=== PATIENT | female | born 1980 | race Caucasian/White ===

== ENCOUNTER 2017-03-08 17:05 | Emergency (ER) | payer OTHER ==
[~2017-03-08] VITALS: Ht 175.3 cm; Wt 59.0 kg
[2017-03-08] MEDS ORDERED: Ketorolac 30mg Inj IV ONE (17:30)
[2017-03-08 17:50] LABS: BASOPHILS % (AUTO) 0.9 % (0.0-2.0); LYMPHOCYTES % (AUTO) 20.2 % (20.0-45.0); MEAN CORPUSCULAR HGB CONC 36.1 G/DL (32.0-36.0); MEAN CORPUSCULAR VOLUME 100 FL (80-99); MEAN PLATELET VOLUME 8.3 FL (6.5-10.1); MONOCYTES % (AUTO) 4.6 % (1.0-10.0); NEUTROPHILS % (AUTO) 72.3 % (45.0-75.0); PLATELET COUNT 269 K/UL (150-450); RED BLOOD COUNT 4.19 M/UL (4.20-5.40); RED CELL DISTRIBUTION WIDTH 11.2 % (11.6-14.8); WHITE BLOOD COUNT 11.8 K/UL (4.8-10.8)
[2017-03-08 17:51] LABS: APPEARANCE,URINE CLOUDY; KETONES,URINE 3+ (NEGATIVE); LEUKOCYTE ESTERASE ,URINE 1+ (NEGATIVE); NITRITE,URINE NEGATIVE (NEGATIVE); PH,URINE 5 (4.5-8.0); PROTEIN,URINE 2+ (NEGATIVE); UROBILINOGEN,URINE NORMAL MG/DL (0.0-1.0)
[2017-03-08 17:54] VITALS: BP 97/68
[2017-03-08 18:02] LABS: RBC,URINE TNTC /HPF (0 - 2)
[2017-03-08 18:03] LABS: BACTERIA,URINE OCCASIONAL /HPF; WBC,URINE 0 /HPF (0 - 2)
[2017-03-08 18:09] LABS: ANION GAP 17 (5-15); CALCIUM 9.5 mg/dL (8.6-10.2); CARBON DIOXIDE 24 mEQ/L (20-30); CHLORIDE 99 mEQ/L (98-107); CREATININE 0.8 mg/dL (0.5-0.9); GLOMERULAR FILTRATION RATE > 60 mL/min (>60); HEMOLYSIS 4; POTASSIUM 3.9 mEQ/L (3.4-4.9); SODIUM 140 mEQ/L (135-145)
[2017-03-08] MEDS ORDERED: ACETAMINOPHEN325 M1 ORAL (20:34)
[2017-03-08] MEDS ORDERED: REGLAN10 MG ORAL (20:34)
[2017-03-08 20:49] VITALS: BP 97/68
--- NOTE | 2017-03-08 21:51 | Emergency Room Report ---
History of Present Illness General Chief Complaint: Vaginal Source: Patient Present Illness HPI Patient is a 37-year-old female presenting for excessive vaginal bleeding. The patient states that she had an IUD in place and became 3 months prior. The was said to be ectopic and the patient was given methotrexate on 02.01.17. The patient states that she had a lot of tissue pass and subsequent visits went well. Patient did not need a D&C. A NuvaRing was then placed 2 weeks prior. Patient noticed pain and bleeding and NuvaRing was removed one week prior. The patient then noticed increased bleeding with clotting. The patient states that she goes through 5 pads per day. Pain to the lower abdomen is described as a 6/10 dull ache with cramping. Pain does not radiate. She admits to nausea and fatigue. She denies other symptoms including fever, chills, shortness of breath, chest pain, rash, flank pain, constipation, diarrhea, vaginal discharge, dysuria Allergies: Coded Allergies: SULFA (SULFONAMIDE ANTIBIOTICS) (Verified Allergy, Unknown, 03/08/17) Patient History Past Medical History: see triage record Pertinent Family History: none Last Menstrual Period: unsure possibly 02/16/17 Now: No : 1 Para: 0 Reviewed Nursing Documentation: PMH: Agreed, PSxH: Agreed Nursing Documentation-PMH Past Medical History: No Stated History Physical Exam Vital Signs Date Time Temp Pulse Resp B/P Pulse Ox O2 Delivery O2 Flow Rate FiO2 03/08/17 17:13 97.9 89 18 97/68 97 Room Air Medical Decision Making PA Attestation Dr. Juarez is my supervising physician. Patient management was discussed with my supervising physician Diagnostic Impression: Primary Impression: Threatened miscarriage ER Course The patient will followup with [facility]PERATOR or will return to the emergency department in 72 hours for redraw of the hCG Laboratory Tests Test 03/08/17 17:20 03/08/17 17:40 Urine Color Pale yellow Urine Appearance Cloudy Urine pH 5 (4.5-8.0) Urine Specific [place] 1.020 (1.005-1.035) Urine Protein 2+ (NEGATIVE) H Urine Glucose (UA) Negative (NEGATIVE) Urine Ketones 3+ (NEGATIVE) H Urine Occult Blood 5+ (NEGATIVE) H Urine Nitrite Negative (NEGATIVE) Urine Bilirubin Negative (NEGATIVE) Urine Urobilinogen Normal MG/DL (0.0-1.0) Urine Leukocyte Esterase 1+ (NEGATIVE) H Urine RBC Tntc /HPF (0 - 2) H Urine WBC 0 /HPF (0 - 2) Urine Squamous Epithelial Cells None /LPF (NONE/OCC) Urine Bacteria Occasional /HPF (NONE) Urine HCG, Qualitative Positive White Blood Count 11.8 K/UL (4.8-10.8) H Red Blood Count 4.19 M/UL (4.20-5.40) L Hemoglobin 15.1 G/DL (12.0-16.0) Hematocrit 41.9 % (37.0-47.0) Mean Corpuscular Volume 100 FL (80-99) H Mean Corpuscular Hemoglobin 36.0 PG (27.0-31.0) H Mean Corpuscular Hemoglobin Concent 36.1 G/DL (32.0-36.0) H Red Cell Distribution Width 11.2 % (11.6-14.8) L Platelet Count 269 K/UL (150-450) Mean Platelet Volume 8.3 FL (6.5-10.1) Neutrophils (%) (Auto) 72.3 % (45.0-75.0) Lymphocytes (%) (Auto) 20.2 % (20.0-45.0) Monocytes (%) (Auto) 4.6 % (1.0-10.0) Eosinophils (%) (Auto) 2.0 % (0.0-3.0) Basophils (%) (Auto) 0.9 % (0.0-2.0) Sodium Level 140 mEQ/L (135-145) Potassium Level 3.9 mEQ/L (3.4-4.9) Chloride Level 99 mEQ/L (98-107) Carbon Dioxide Level 24 mEQ/L (20-30) Anion Gap 17 (5-15) H Blood Urea Nitrogen 8 mg/dL (7-23) Creatinine 0.8 mg/dL (0.5-0.9) Estimate Glomerular Filtration Rate > 60 mL/min (>60) Glucose Level 126 mg/dL (74-106) H Calcium Level 9.5 mg/dL (8.6-10.2) Human Chorionic Gonadotropin, Quant 789 mIU/mL Last Vital Signs Date Time Temp Pulse Resp B/P Pulse Ox O2 Delivery O2 Flow Rate FiO2 5/5/17 20:49 97.9 89 18 97/68 97 Room Air Disposition: HOME, SELF-CARE Condition: Improved Scripts Metoclopramide Hcl* (REGLAN*) 10 Mg Tablet 10 MG ORAL THREE TIMES A DAY, #15 TAB Prov: NORMAN EDUARDO 03/08/17 Acetaminophen* (ACETAMINOPHEN 325MG TABLET*) 325 Mg Tablet 325 MG ORAL Q4H Y for For Pain, #30 TAB Prov: NORMAN EDUARDO 03/08/17 Referrals: REGINA DUKES Patient Instructions: Threatened Miscarriage Additional Instructions: I discussed my findings with the patient. All questions and concerns have been answered. Treatment and medication compliance have been addressed. I advised the patient that they need to follow up with PMD in 3-5 days. Return to ED if symptoms worsen, new symptoms arise, or if needed for any reason. Patient verbalized understanding of discharge instructions. The patient is informed that she needs to return to this emergency department in 72 hours for recheck of beta hCG. Patient will return sooner if needed for any reason. NORMAN EDUARDO March 08, 2017 21:51
--- NOTE | 2017-03-09 12:54 | Diagnostic Imaging Report ---
Indication:Lower abdominal and pelvic pain. Vaginal bleeding. Technique: Grayscale and duplex Doppler imaging of the pelvis performed utilizing a transabdominal scan and endovaginal scan. Comparison: None Findings: status is unknown. There is no intrauterine demonstrated. The endometrium is mildly thickened and slightly heterogeneous. Endometrial measurement is about 12 mm. Small focus of blood and/or retained products of conception not excludable. Both ovaries are demonstrated and show Doppler evidence of blood flow. There is no free fluid or adnexal mass. Impression: Heterogeneous slightly thickened endometrium. Small amount of blood and/or retained products of conception not excluded.
== END 2017-03-08 20:44 | disposition home or self-care (01) ==
LOC: EMR 17:25
DX: O20.0 Threatened abortion (principal); Z3A.00 Weeks of gestation of pregnancy not specified; Z88.2 Allergy status to sulfonamides
CPT/HCPCS: 36415; 76830; 76856; 80048; 81003; 81025; 84702; 85025; 96374; 96375; 99284; J1885; J2405

== ENCOUNTER 2017-03-11 12:44 | Emergency (ER) | payer OTHER ==
[~2017-03-11] VITALS: Ht 175.3 cm; Wt 59.0 kg
[~2017-03-11 12:44] MED LIST: ACETAMINOPHEN325 M1 ORAL; REGLAN10 MG ORAL
[2017-03-11 12:49] VITALS: BP 116/73
[2017-03-11 13:50] LABS: BASOPHILS % (AUTO) 1.8 % (0.0-2.0); EOSINOPHILS % (AUTO) 4.4 % (0.0-3.0); MEAN CORPUSCULAR HEMOGLOBIN 32.8 PG (27.0-31.0); MEAN CORPUSCULAR VOLUME 99 FL (80-99); MEAN PLATELET VOLUME 8.5 FL (6.5-10.1); MONOCYTES % (AUTO) 8.5 % (1.0-10.0); NEUTROPHILS % (AUTO) 46.3 % (45.0-75.0); PLATELET COUNT 293 K/UL (150-450); RED BLOOD COUNT 4.34 M/UL (4.20-5.40); RED CELL DISTRIBUTION WIDTH 11.4 % (11.6-14.8); WHITE BLOOD COUNT 6.7 K/UL (4.8-10.8)
[2017-03-11 14:03] LABS: INR 1.1 (0.9-1.1); PROTHROMBIN TIME 11.3 SEC (9.30-11.50)
[2017-03-11 14:10] LABS: ANION GAP 14 (5-15); CALCIUM 9.3 mg/dL (8.6-10.2); CARBON DIOXIDE 24 mEQ/L (20-30); CHLORIDE 99 mEQ/L (98-107); CREATININE 0.8 mg/dL (0.5-0.9); GLOMERULAR FILTRATION RATE > 60 mL/min (>60); HEMOLYSIS 3; POTASSIUM 3.8 mEQ/L (3.4-4.9); SODIUM 137 mEQ/L (135-145)
[2017-03-11 14:13] LABS: APPEARANCE,URINE CLEAR; KETONES,URINE NEGATIVE (NEGATIVE); LEUKOCYTE ESTERASE ,URINE 1+ (NEGATIVE); NITRITE,URINE NEGATIVE (NEGATIVE); PH,URINE 5 (4.5-8.0); PROTEIN,URINE NEGATIVE (NEGATIVE); UROBILINOGEN,URINE NORMAL MG/DL (0.0-1.0)
[2017-03-11 14:31] LABS: BACTERIA,URINE FEW /HPF; SQUAMOUS EPITHELIAL CELL,UR FEW /LPF (NONE/OCC)
[2017-03-11 16:30] VITALS: BP 120/79
--- NOTE | 2017-03-11 18:33 | Emergency Room Report ---
History of Present Illness General Chief Complaint: Complications Source: Patient Present Illness HPI Patient is a 37-year-old female presenting for beta hCG repeat and continued vaginal bleeding. The patient was seen in this emergency department 3 days prior for vaginal bleeding after medically terminating . The was said to be ectopic and the patient was given methotrexate on 02.01.17. The patient states that she had a lot of tissue pass and subsequent visits went well. The patient states that she goes through 5 pads per day. Pain to the lower abdomen is described as a 6/10 dull ache with cramping. Pain does not radiate. She admits to nausea and fatigue. She denies other symptoms including fever, chills, shortness of breath, chest pain, rash, flank pain, constipation, diarrhea, vaginal discharge, dysuria No D&C was done. Allergies: Coded Allergies: SULFA (SULFONAMIDE ANTIBIOTICS) (Verified Allergy, Unknown, 03/08/17) Patient History Past Medical History: see triage record Pertinent Family History: none Last Menstrual Period: unk : 2 Para: 0 Reviewed Nursing Documentation: PMH: Agreed, PSxH: Agreed Nursing Documentation-PMH Past Medical History: No Stated History Review of Systems All Other Systems: negative except mentioned in HPI Physical Exam Vital Signs Date Time Temp Pulse Resp B/P Pulse Ox O2 Delivery O2 Flow Rate FiO2 03/11/17 12:49 98.4 76 16 116/73 98 Room Air Sp02 EP Interpretation: reviewed, normal General Appearance: no apparent distress, alert, GCS 15, non-toxic Head: normocephalic, atraumatic Eyes: bilateral eye PERRL, bilateral eye normal inspection ENT: hearing grossly normal, normal pharynx, no angioedema, normal voice Neck: full range of motion, supple/symm/no masses Respiratory: chest non-tender, lungs clear, normal breath sounds, speaking full sentences Cardiovascular #1: regular rate, rhythm, no edema Gastrointestinal: normal bowel sounds, soft, no mass, no guarding, tenderness - suprapubic Genitourinary: normal inspection, no CVA tenderness Musculoskeletal: back normal, gait/station normal, normal range of motion, non- tender Neurologic: alert, oriented x3, responsive, motor strength/tone normal, sensory intact, normal gait, speech normal Psychiatric: judgement/insight normal, memory normal, mood/affect normal, no suicidal/homicidal ideation Skin: normal color, no rash, warm/dry, well hydrated Lymphatic: no adenopathy Medical Decision Making PA Attestation Dr. Degroot is my supervising physician. Patient management was discussed with my supervising physician Diagnostic Impression: Primary Impression: Retained products of conception ER Course Patient is a 37-year-old female presenting for beta hCG repeat and continued vaginal bleeding Differential diagnoses considered include but not limited to Early , threatened , incomplete , ectopic , hemorrhagic cyst, retained products of conception PE: Vitals WNL. NAD. Abdomen: Normal appearance. Non distended. No ecchymosis. Normal BS. + TTP over the suprapubic region only. No McBurney point tenderness. No guarding. No CVA tenderness Labs: CBC unremarkable. No anemia BMP unremarkable. beta hCG shows no significant change from 3 days prior. UA: 3+ occult blood. No signs of infection pelvic US shows retained products of conception. THE OB reinforced concrete inspector was consulted over the phone who recommends having the patient take cytotec and follow up. The pt was given 400 mcg of cytotec as instructed. She will FU with OB. Outpatient referral provided. ER precautions given. She is given a prescription for doxycycline. Labs Test 03/11/17 13:30 03/11/17 14:00 White Blood Count 6.7 K/UL (4.8-10.8) Red Blood Count 4.34 M/UL (4.20-5.40) Hemoglobin 14.2 G/DL (12.0-16.0) Hematocrit 43.1 % (37.0-47.0) Mean Corpuscular Volume 99 FL (80-99) Mean Corpuscular Hemoglobin 32.8 PG (27.0-31.0) Mean Corpuscular Hemoglobin Concent 33.0 G/DL (32.0-36.0) Red Cell Distribution Width 11.4 % (11.6-14.8) Platelet Count 293 K/UL (150-450) Mean Platelet Volume 8.5 FL (6.5-10.1) Neutrophils (%) (Auto) 46.3 % (45.0-75.0) Lymphocytes (%) (Auto) 39.0 % (20.0-45.0) Monocytes (%) (Auto) 8.5 % (1.0-10.0) Eosinophils (%) (Auto) 4.4 % (0.0-3.0) Basophils (%) (Auto) 1.8 % (0.0-2.0) Prothrombin Time 11.3 SEC (9.30-11.50) Prothromb Time International Ratio 1.1 (0.9-1.1) Activated Partial Thromboplast Time 28 SEC (23-33) Sodium Level 137 mEQ/L (135-145) Potassium Level 3.8 mEQ/L (3.4-4.9) Chloride Level 99 mEQ/L (98-107) Carbon Dioxide Level 24 mEQ/L (20-30) Anion Gap 14 (5-15) Blood Urea Nitrogen 8 mg/dL (7-23) Creatinine 0.8 mg/dL (0.5-0.9) Estimat Glomerular Filtration Rate > 60 mL/min (>60) Glucose Level 96 mg/dL (74-106) Calcium Level 9.3 mg/dL (8.6-10.2) Human Chorionic Gonadotropin, Quant 835 mIU/mL Urine Color Pale yellow Urine Appearance Clear Urine pH 5 (4.5-8.0) Urine Specific [place] 1.020 (1.005-1.035) Urine Protein Negative (NEGATIVE) Urine Glucose (UA) Negative (NEGATIVE) Urine Ketones Negative (NEGATIVE) Urine Occult Blood 4+ (NEGATIVE) Urine Nitrite Negative (NEGATIVE) Urine Bilirubin Negative (NEGATIVE) Urine Urobilinogen Normal MG/DL (0.0-1.0) Urine Leukocyte Esterase 1+ (NEGATIVE) Urine RBC 2-4 /HPF (0 - 2) Urine WBC 2-4 /HPF (0 - 2) Urine Squamous Epithelial Cells Few /LPF (NONE/OCC) Urine Bacteria Few /HPF (NONE) Urine HCG, Qualitative Positive Lab Results Impression CBC unremarkable. No anemia BMP unremarkable. beta hCG shows no significant change from 3 days prior. UA: 3+ occult blood. No signs of infection CT/MRI/US Diagnostic Results CT/MRI/US Diagnostic Results : Imaging Test Ordered: Pelvic US Impression Heterogeneous appearance of the endometrium. Retained products of conception suspected. Similar findings on the prior exam. Mild free fluid. Last Vital Signs Date Time Temp Pulse Resp B/P Pulse Ox O2 Delivery O2 Flow Rate FiO2 03/11/17 16:30 98.2 76 16 120/79 97 Room Air Status: improved Disposition: HOME, SELF-CARE Condition: Improved Scripts Doxycycline Hyclate* (VIBRAMYCIN*) 100 Mg Capsule 100 MG ORAL EVERY 12 HOURS, #14 CAP 0 Refills Prov: NORMAN EDUARDO 03/11/17 Referrals: [facility] (PCP) NORMAN EDUARDO March 11, 2017 18:33
[2017-03-11] MEDS ORDERED: Misoprostol 100mcg tab ORAL ONE (19:00)
[2017-03-11] MEDS ORDERED: VIBRAMYCIN100 MG ORAL (19:05)
[2017-03-11 19:45] VITALS: BP 124/76
--- NOTE | 2017-03-12 09:06 | Diagnostic Imaging Report ---
Indication:Lower abdominal and pelvic pain Technique: Grayscale and duplex Doppler imaging of the pelvis performed utilizing a transabdominal scan and endovaginal scan. Comparison: Ultrasound 03/08/17 Findings: Similar findings are noted currently. There is evidence of blood and/or debris within the endometrial canal distending the canal . The endometrial contents are heterogeneous and demonstrates some Doppler evidence of blood flow. In the context of a positive test, the findings are suspicious for retained products of conception. WOOL PULLER evaluation is recommended. The uterus measures 8.3 x 4.5 x 3.7 cm. There is a small hypoechoic mass in the lower uterine segment most likely a small fibroid measuring approximately 1 cm. Alternatively, this could be a scar. Please correlate clinically. Both ovaries are demonstrated and appear normal with dopplerable blood flow. Right ovary 3.8 x 3.7 x 2.1 CM. Left ovary 3.3 x 3.7 x 1.6 cm. Mild free fluid is present. Impression: Heterogeneous appearance of the endometrium. Retained products of conception suspected. Similar findings on the prior exam. Mild free fluid.
== END 2017-03-11 19:45 | disposition home or self-care (01) ==
LOC: EMR 13:14 → CANBEDREQ 18:40 → EMR 19:45
DX: O03.4 Incomplete spontaneous abortion without complication (principal); Z88.2 Allergy status to sulfonamides; R10.30 Lower abdominal pain, unspecified; R11.0 Nausea
CPT/HCPCS: 36415; 76830; 76856; 80048; 81003; 81025; 84702; 85025; 85610; 85730; 99284

== ENCOUNTER 2018-06-23 11:06 | Emergency (ER) | payer OTHER ==
[~2018-06-23] VITALS: Ht 175.3 cm; Wt 56.7 kg
[~2018-06-23 11:06] MED LIST changes: +VIBRAMYCIN100 MG ORAL
[2018-06-23] MEDS ORDERED: NKM (11:14)
[2018-06-23 11:19] VITALS: BP 118/64
[2018-06-23] MEDS ORDERED: Lidocaine 1% Plain 30 ml INJ ONE (11:45)
[2018-06-23] MEDS ORDERED: BACITRACIN15 GM TOPIC (12:18)
[2018-06-23] MEDS ORDERED: Bacitracin Oint UD TOPIC ONE ×2 (12:20→12:30)
[2018-06-23 12:28] VITALS: BP 118/64
--- NOTE | 2018-06-25 07:14 | Emergency Room Report ---
History of Present Illness General Chief Complaint: Laceration Source: Patient Present Illness HPI 38-year-old female presents ED for evaluation of laceration. States that she accidentally cut her right fifth finger with a knife while cooking today. Tetanus is up-to-date. Pain is dull, 8 out of 10, nonradiating. Denies any other injuries. No other aggravating relieving factors. Denies any other associated symptoms Allergies: Coded Allergies: SULFA (SULFONAMIDE ANTIBIOTICS) (Verified Allergy, Unknown, 03/08/17) Patient History Past Medical History: none Past Surgical History: none Pertinent Family History: none Social History: Denies: smoking, alcohol use, drug use Last Menstrual Period: 06/04/18 Now: No Immunizations: UTD Reviewed Nursing Documentation: PMH: Agreed; PSxH: Agreed Nursing Documentation-PMH Past Medical History: No Stated History Review of Systems All Other Systems: negative except mentioned in HPI Physical Exam Vital Signs Date Time Temp Pulse Resp B/P (MAP) Pulse Ox O2 Delivery O2 Flow Rate FiO2 06/23/18 11:11 98.1 88 18 118/64 97 Room Air 98.1 Sp02 EP Interpretation: reviewed, normal General Appearance: no apparent distress, alert, GCS 15, non-toxic Head: normocephalic Eyes: bilateral eye normal inspection, bilateral eye PERRL ENT: normal ENT inspection Neck: normal inspection Respiratory: normal inspection Cardiovascular #1: normal inspection Gastrointestinal: normal inspection Rectal: deferred Genitourinary: no CVA tenderness Musculoskeletal: back normal, gait/station normal, normal range of motion, non- tender Neurologic: alert, oriented x3, responsive, motor strength/tone normal, sensory intact, speech normal Psychiatric: judgement/insight normal, memory normal, mood/affect normal, no suicidal/homicidal ideation Skin: laceration - 1.5cm flap laceration to R 5th finger. Lymphatic: normal inspection Procedures Laceration/Wound Repair Laceration/Wound Repair : Consent: Verbal Wound Location: upper extremity - R 5th finger Wound's Depth, Shape: flap Wound Explored: clean Betadine Prep?: Yes Anesthesia: 1% Lidocaine Wound Debrided: minimal Wound Repaired With: sutures Suture Size/Type: 6:0, proline Layer Closure?: No Sterile Dressing Applied?: Yes Splint Applied?: No Sling Applied?: No Patient Tolerated: Well Complications: None Medical Decision Making Diagnostic Impression: Primary Impression: Laceration ER Course Hospital Course 38-year-old F presents to ED s/p laceration R 5th finger using knife Clinical course Patient placed on stretcher. After initial history and physical, wound irrigated. Anesthesia provided with lidocaine. Laceration repaired w/o complication. Dressing applied. Diagnosis - laceration Stable and discharged to home with prescription for Bacitracin. wound Care instructions given. Followup with PMD in 10-14 days for suture removal. Return to ED if any signs of infection develop Last Vital Signs Date Time Temp Pulse Resp B/P (MAP) Pulse Ox O2 Delivery O2 Flow Rate FiO2 06/23/18 12:28 98.1 88 18 118/64 97 Room Air 98.1 Status: improved Disposition: HOME, SELF-CARE Condition: Stable Scripts Bacitracin (Bacitracin) 28.4 Gm Oint...g. 1 APPLIC TOPIC THREE TIMES A DAY, #28.4 GM Prov: Shady Degroot MD 06/23/18 Referrals: [facility] (PCP) Patient Instructions: Laceration Care, Adult Additional Instructions: return in 10-14 days for suture removal. return to ED if any signs of infection develop Shady Degroot MD Jun 25, 2018 07:14
== END 2018-06-23 12:29 | disposition home or self-care (01) ==
LOC: EMR 12:01
DX: S61.216A Laceration without foreign body of right little finger without damage to nail, initial encounter (principal); W26.0XXA Contact with knife, initial encounter; Y93.G3 Activity, cooking and baking; Y92.090 Kitchen in other non-institutional residence as the place of occurrence of the external cause
CPT/HCPCS: 12001; 99282; J2001; Z7502